=== PATIENT | female | born 1950 | race Caucasian/White ===

== ENCOUNTER 2017-04-18 20:19 | Emergency (ER) | payer OTHER ==
[~2017-04-18] VITALS: Ht 121.9 cm; Wt 40.0 kg
[~2017-04-18 20:19] MED LIST: ABILIFY10 MG GT; ABILIFY10 MG PO; ABILIFY2 MG PO; ACETAMINOPHEN-120 ML PO; ACETAMINOPHEN325 M1 GT; ACETAMINOPHEN325 M1 PO; ACETIC ACID 2% BOTH EARS; ACETIC ACID 2% OT; ADULT LOW DOSE81 M1 PO; ADULT MUCU100 MG/5 M PO; APHEN325 MG PO; ASPIR 8181 M1 PO; ASPIRIN81 M2 PO; BACTRIM,SEPT1 TABLET GT; BACTRIM,SEPT1 TABLET PO; CALCIUM ANTACI300 MG PO; CALCIUM ANTACI500 MG PO; CALMOSEPTINE O120 GM TP; CAPITAL WITH C473 ML GT; CAPITAL WITH C473 ML PO; CARAFATE1 GM GT; CEFTIN500 MG PO; CHILD ASPIRIN81 M1 PO; CHILDREN'S ASPI81 M1 PO; CLARITIN10 MG PO; CLONAZEPAM0.5 MG GT; CLONAZEPAM0.5 MG PO; COMPAZINE10 MG GT; COMPAZINE10 MG PO; COMPAZINE5 MG PO; CONSTULOSE10 GM/15 M PO; DEBROX15 ML BOTH EARS; DEXILANT60 MG PO; DULCOLAX10 MG PR; DUONEB 2.5-0.5 M3 ML IH; EAR WAX DROPS15 ML BOTH EARS; EAR WAX REMOVAL15 ML; ENEMA READY-TO133 ML RC; ENEMA133 M2 PR; ENULOSE10 GM/15 M GT; ENULOSE10 GM/15 M PO; FEOSOL300 MG/5 M GT; FEOSOL325 MG PO; FEOSOL44 MG/ML GT; FERROUS SULFAT325 MG PO; FLEET ENEMA-AD118 ML PR; FLONASE16 G1 BOTH NARES; FOLIC ACID1 MG GT; FOLIC ACID1 MG PO; FORTICAL3.7 ML ALT NARES; GENERLAC10 GM/15 M PO; GENTAMICIN SULFA5 ML BOTH EYES; HALCION0.25 MG PO; KEFLEX500 MG PO; KLONOPIN0.5 M1 PO; KLOR-CON M2020 MEQ GT; LEVOFLOXACIN250 MG GT; LOVENOX40 MG/0.4 SC; MIRALAX17 GM GT; MIRALAX255 GM GT; NEXIUM40 MG PO; OMEPRAZOLE10 M1 GT; OMEPRAZOLE20 MG PO; ONDANSETRON HCL4 MG PO; PANTOPRAZOLE SO40 MG PO; PAROXETINE HCL10 MG PO; PAROXETINE HCL20 MG GT; PAROXETINE HCL25 MG PO; PAXIL CR25 MG PO; PAXIL10 MG GT; PAXIL10 MG PO; PAXIL20 MG GT; PHENADOZ25 MG PR; PHENERGAN25 MG PR; PHILLIPS'400 MG/5 M PO; POLYETHYLENE GL17 GM GT; POTASSIUM CHLORIDE; POTASSIUM20 MEQ/11 PO; PREVACID30 MG GT; PROCHLORPERAZIN10 MG PO; PROMETHAZINE HC25 MG PR; PROMETHAZINE12.5 M1 GT; PROMETHEGAN25 MG PR; PROTONIX40 M1 GT; PROTONIX40 M1 PO; PROTONIX40 MG GT; PROTONIX40 MG PO; PROVENTIL,2.5 MG/3 M IH; PROVENTIL2.5 MG/3 M IH; REGLAN5 MG PO; RISAMINE OINTM113 GM TP; ROBITUSSIN100 MG/5 M PO; ROCEPHIN1000 MG IM; ROXICET; ROXICET 5-325500 ML PO; ROXICET,PERCOCET5 ML PO; SANI-SUPP1 EACH PR; SUCRALFATE1 GM GT; SUCRALFATE1 GM PO; SUCRALFATE1 GM/10 ML PO; TUMS500 MG GT; TUMS500 MG PO; TYLENOL REGULA325 MG GT; TYLENOL REGULA325 MG PO; XARELTO10 MG PO; ZOFRAN4 MG GT; ZOFRAN4 MG PO; ZYPREXA5 MG PO; [UNRECOGNIZED DRUG - OTHER] BOTH EARS; [UNRECOGNIZED DRUG - OTHER] TP
[2017-04-18 22:09] VITALS: BP 120/46
== END 2017-04-18 22:11 | disposition home or self-care (01) ==
LOC: EME 20:19
PROC: 0D20XUZ Change Feeding Device in Upper Intestinal Tract, External Approach (ICD-10-PCS; principal; 2017-04-18)
DX: K94.23 Gastrostomy malfunction (principal); Z43.1 Encounter for attention to gastrostomy; M81.0 Age-related osteoporosis without current pathological fracture; K21.9 Gastro-esophageal reflux disease without esophagitis
CPT/HCPCS: 74000; 99281; 99284; B4087

== ENCOUNTER 2017-11-04 16:13 | Emergency (ER) | payer OTHER ==
[~2017-11-04] VITALS: Ht 134.6 cm; Wt 39.1 kg
[2017-11-04 17:05] LABS: HEMATOCRIT 38.4 % (36.0-46.0); HEMOGLOBIN 11.5 G/DL (11.9-15.5); MCH 27.6 PG (29.0-34.0); MCHC 29.9 G/DL (30.0-36.0); MCV 92.3 FL (83-99); PLATELET COUNT 399 K/uL (156-360); RBC DIS.WIDTH-CV 14.4 % (11.8-14.6); RBC DIS.WIDTH-SD 48.7 % (39-53); RED BLOOD COUNT 4.16 M/uL (3.80-5.20); WHITE BLOOD COUNT 11.4 K/uL (4.1-10.2)
[2017-11-04 17:14] LABS: CHLORIDE 101 mEq/L (99-109); SODIUM 137 mEq/L (136-147)
[2017-11-04 17:15] LABS: GLUCOSE 103 mg/dL (70-99)
[2017-11-04 17:19] LABS: CREATININE 0.4 mg/dL (0.6-1.3); GFR ESTIMATE (CALCULATED) > 59 mL/min/
[2017-11-04 17:20] LABS: UREA NITROGEN (BUN) 10 mg/dL (9-23)
[2017-11-04] MEDS ORDERED: ZITHROMAX Z-PA250 MG PO (21:27)
[2017-11-04] MEDS ORDERED: CEFTIN500 MG PO (21:27)
[2017-11-04 21:48] VITALS: BP 108/55
== END 2017-11-04 21:49 | disposition home or self-care (01) ==
LOC: EME 16:13
DX: J20.9 Acute bronchitis, unspecified (principal); F32.9 Major depressive disorder, single episode, unspecified; K21.9 Gastro-esophageal reflux disease without esophagitis; F41.9 Anxiety disorder, unspecified; H91.92 Unspecified hearing loss, left ear; Z93.1 Gastrostomy status
CPT/HCPCS: 71045; 80048; 85027; 99281; 99284; J0696

== ENCOUNTER 2018-01-25 21:57 | Emergency (ER) | payer OTHER ==
[~2018-01-25] VITALS: Ht 149.9 cm; Wt 36.4 kg
[~2018-01-25 21:57] MED LIST changes: +ZITHROMAX Z-PA250 MG PO
[2018-01-26 01:21] VITALS: BP 116/76
== END 2018-01-26 01:21 | disposition home or self-care (01) ==
LOC: EME 21:57
DX: S96.911A Strain of unspecified muscle and tendon at ankle and foot level, right foot, initial encounter (principal); S90.31XA Contusion of right foot, initial encounter; X58.XXXA Exposure to other specified factors, initial encounter; Y92.193 Bedroom in other specified residential institution as the place of occurrence of the external cause; F79 Unspecified intellectual disabilities; K21.9 Gastro-esophageal reflux disease without esophagitis; M81.0 Age-related osteoporosis without current pathological fracture; F41.9 Anxiety disorder, unspecified; F32.9 Major depressive disorder, single episode, unspecified; Z90.49 Acquired absence of other specified parts of digestive tract
CPT/HCPCS: 73630; 99281; 99283